=== PATIENT | female | born 1980 ===

== ENCOUNTER 2020-09-27 06:24 | Inpatient (IN) | payer OTHER ==
[~2020-09-27] VITALS: Ht 167.6 cm; Wt 73.5 kg
[2020-09-27] MEDS ORDERED: ADULT ASPIRIN81 MG PO (10:53)
[2020-09-27] MEDS ORDERED: PRENATAL TABLE1 EAC1 PO (10:54)
== END 2020-09-29 14:58 | disposition home or self-care (01) | DRG 807 ==
LOC: OB/GYN 06:24 → LDR 06:24 → OB/GYN 14:44
PROVIDERS: ADMIT Specialist; ATTEND Specialist
PROC: 10E0XZZ Delivery of Products of Conception, External Approach (ICD-10-PCS; principal; 2020-09-27)
PROC: 0HQ9XZZ Repair Perineum Skin, External Approach (ICD-10-PCS; 2020-09-27)
PROC: 10907ZC Drainage of Amniotic Fluid, Therapeutic from Products of Conception, Via Natural or Artificial Opening (ICD-10-PCS; 2020-09-27)
PROC: 3E033VJ Introduction of Other Hormone into Peripheral Vein, Percutaneous Approach (ICD-10-PCS; 2020-09-27)
PROC: 4A1HXFZ Monitoring of Products of Conception, Cardiac Rhythm, External Approach (ICD-10-PCS; 2020-09-27)
DX: O70.0 First degree perineal laceration during delivery (principal); Z37.0 Single live birth; Z3A.37 37 weeks gestation of pregnancy